=== PATIENT | female | born 1970 | race Hispanic/Latino ===

== ENCOUNTER → 2020-08-26 | Emergency (ER) | payer OTHER ==
[~2020-08-26] VITALS: Ht 170.2 cm; Wt 81.6 kg
[~2020-08-26] MED LIST: DOXYCYCLINE HY100 MG PO; TETANUS/DIPHTHERIA TOX ADULT 0.5 ML SYR IM ONE
[2020-08-26 17:25] VITALS: BP 120/62
== END | disposition home or self-care (01) ==
LOC: ER 18:54
DX: S91.312A Laceration without foreign body, left foot, initial encounter (principal); W20.8XXA Other cause of strike by thrown, projected or falling object, initial encounter; Y92.008 Other place in unspecified non-institutional (private) residence as the place of occurrence of the external cause; E11.40 Type 2 diabetes mellitus with diabetic neuropathy, unspecified; I10 Essential (primary) hypertension
CPT/HCPCS: 90714; 99283